=== PATIENT | male | born 1970 | race Caucasian/White ===

== ENCOUNTER 2021-12-12 09:41 | Outpatient (CLI) | payer BC, SELFPAY ==
--- NOTE | 2021-12-12 09:59 | US_ITS ---
WS: [id number] RENAL ULTRASOUND HISTORY: STAGE 3A CHRONIC KIDNEY DZ COMPARISON: None available. TECHNIQUE: 2-D and color Doppler imaging of the kidney submitted. Right kidney: 11.3 cm x 5.7 cm x 5.8 cm. Kidney is normal size but there is increased echogenicity and mild cortical thinning. Cortex measures 1.1 cm. No mass. Left kidney: 10.4 cm x 4.7 cm x 5.4 cm. Normal size kidney but there is moderate increased echogenicity and poor cortical medullary different iation. Cortex is diffusely thinned measuring 1.0 cm. Aorta: Normal. Urinary Bladder: Normal distention. US/US renal BI* [id number] IMPRESSION: 1. Moderate chronic medical renal disease. 2. No significant renal atrophy but there is mild cortical thinning of each ki dney.
== END 2021-12-12 09:42 | disposition home or self-care (01) ==
PROVIDERS: PCP Nurse Practitioner Family; Visit Provider Internal Medicine Nephrology
DX: N18.31 Chronic kidney disease, stage 3a (principal)
CPT/HCPCS: 76770